=== PATIENT | female | born 1980 | race Hispanic/Latino ===

== ENCOUNTER → 2024-11-14 12:02 | Outpatient (REF) | payer OTHER, SELFPAY ==
[2024-11-14 13:09] LABS: % Basophils 0.6 % (0-2); % Eosinophils 4.3 % (0-6); % Immature Granulocytes 0.2 % (0-0.5); % Lymphocytes 40.3 % (20.5-51.1); % Monocytes 6.3 % (1.7-9.3); % Neutrophils 48.3 % (42.2-75.2); Absolute Eosinophils 0.3 10^3/uL (0-0.7); Absolute Lymphocytes 2.5 10^3/uL (1.2-3.4); Absolute Monocytes 0.4 10^3/uL (0.1-0.6); Hematocrit 40.5 % (37.0-47.0); Hemoglobin 13.5 g/dL (12.0-16.0); Mean Corp Hgb Conc. 33.3 g/dL (33.0-37.0); Mean Corpuscular Volume 92.9 fL (81.0-99.0); Nucleated Red Blood Cells % 0 %; Platelet Count 306 10^3/uL (130-400); Red Blood Cell Count 4.36 10^6/uL (4.20-5.40); Red Cell Dist. Width 13.1 % (11.5-14.5); White Blood Cell Count 6.2 10^3/uL (4.8-10.8)
[2024-11-14 13:10] LABS: Urine Albumin Negative (Neg - Trace); Urine Bilirubin Negative (Negative); Urine Character Clear (Clear); Urine Color Yellow; Urine Glucose Negative (Negative); Urine Ketone Negative (Negative); Urine Leukocyte Negative (Negative); Urine Nitrite Negative (Negative); Urine Occult Blood Negative (Negative); Urine Urobilinogen Negative (Neg - 1+)
[2024-11-14 13:37] LABS: ALT (SGPT) 53 U/L (0-35); AST (SGOT) 44 U/L (14-36); Albumin 4.7 g/dl (3.5-5.0); Alkaline Phosphatase 80 U/L (38-126); Blood Urea Nitrogen 5 mg/dl (7-17); Calcium 9.3 mg/dl (8.4-10.2); Carbon Dioxide 21 mmol/L (22-30); Chloride 105 mmol/L (98-107); Glucose 97 mg/dl (70-99); HDL Cholesterol 43 mg/dl; LDL Cholesterol, Calculated 133 mg/dl; Sodium 137 mmol/L (135-145); Total Bilirubin 0.7 mg/dl (0.2-1.3); Total Cholesterol 201 mg/dl (50-199); Total Protein 8.3 g/dl (6.3-8.2); Triglyceride 129 mg/dl (10-149); Very Low Density Lipoprotein 25 mg/dl (0-30); eGFR > 60.00
== END ==
LOC: RAD 12:02
PROVIDERS: ATTENDING PHYSICIAN Family Medicine
DX: R03.0 Elevated blood-pressure reading, without diagnosis of hypertension (principal); M25.562 Pain in left knee; M25.561 Pain in right knee; Z13.220 Encounter for screening for lipoid disorders; Z12.11 Encounter for screening for malignant neoplasm of colon
CPT/HCPCS: 36415; 73564; 80053; 80061; 81003; 83036; 84443; 85025

== ENCOUNTER → 2024-12-06 08:31 | Outpatient (REF) | payer OTHER, SELFPAY ==
[2024-12-08 16:18] LABS: FIT-Fecal Occult Blood Interp Negative
== END ==
LOC: REG 08:31
PROVIDERS: ATTENDING PHYSICIAN Family Medicine
DX: Z13.220 Encounter for screening for lipoid disorders (principal); Z12.11 Encounter for screening for malignant neoplasm of colon; R03.0 Elevated blood-pressure reading, without diagnosis of hypertension
CPT/HCPCS: 83520

== ENCOUNTER → 2024-12-17 17:43 | Outpatient (REF) | payer OTHER, SELFPAY | LOC: WDC 17:43 | PROVIDERS: ATTENDING PHYSICIAN Family Medicine | DX: Z12.31 Encounter for screening mammogram for malignant neoplasm of breast (principal) | CPT/HCPCS: 77063; 77067 ==

== ENCOUNTER → 2024-12-31 06:24 | Outpatient (REF) | payer OTHER, SELFPAY | LOC: WDC 06:24 | PROVIDERS: ATTENDING PHYSICIAN Family Medicine | DX: R74.8 Abnormal levels of other serum enzymes (principal); R92.8 Other abnormal and inconclusive findings on diagnostic imaging of breast | CPT/HCPCS: 76700 ==

== ENCOUNTER 2024-12-31 10:07 | Emergency (ER) | payer SELFPAY ==
[2024-12-31 10:11] VITALS: BP 153/86
--- NOTE | 2024-12-31 10:59 | ED.GENMED ---
History of Present Illness
General
Chief Complaint: Skin Problem
Source: patient
Exam Limitations: none
Time Seen by Provider: 12/31/24 10:46
Nursing documentation reviewed up to this point in time: agreed with
History of Present Illness
History of Present Illness:
44-year-old female with no chronic medical issues presents to the ER for evaluation of redness and pain around the site of a recent skin tag removal. Patient had skin tags on the left neck/shoulder that were removed in the ancillary main clinic on
reviewed the note from the clinic and she was anesthetized with lidocaine/epinephrine and approximately 20 small skin tags were removed. Silver nitrate cautery used for hemostasis. She was discharged with skin care instructions. She says
that a few days later she started to have some pain, warmth and redness of the site. Followed up in the clinic and was referred to the ER to be assessed for possible infection. She has not had any drainage. She has not had any fever. She denies
any other complaints.
Review of Systems
Review of Systems
All Other Systems: ROS reviewed and negative except as documented in HPI and ROS
Constitutional: Denies fever
Skin: Reports other (Redness near skin tag removal site)
Phy Exam
Physical Exam
Physical Exam:
General: Awake, alert, nontoxic
Head: Normocephalic, atraumatic
Eyes: Conjunctiva normal
Throat: Airway intact, handling secretions
Neck: Trachea midline
Lungs: Breathing comfortably no distress
Heart: Regular rate
Neuro: No gross deficits
Skin: Patient has multiple small superficial wounds on the left lateral neck from site of skin tag removal; there is some darkening of the skin around some of the sites likely from silver nitrate; there is some general erythema and warmth of the
area, no fluctuance noted, no drainage from any of the sites (pictured below)
Extremities: Warm and well-perfused
Scores
Heart Failure Risk
Heart Failure Risk Score: Not Applicable
Heart Score for Chest Pain Patients
STEMI patient?: Not applicable
Withdrawal Assessment of Alcohol
Withdrawal Assessment Completed?: Not applicable
Course
Orders/Labs/Results
Orders:
Orders
12/31/24 10:50
Bedside Glucose- Treatment ONCE
12/31/24 10:59
Cephalexin Monohydrate [Keflex] 500 mg PO NOW STA
Vital Signs
Initial and Last Documented VS:
Initial Vital Signs
Temp Pulse Resp BP Pulse Ox
37.1 C 64 18 153/86 98
12/31/24 10:11 12/31/24 10:11 12/31/24 10:11 12/31/24 10:11 12/31/24 10:11
Last Documented Vital Signs
Temp Pulse Resp BP Pulse Ox
37.1 C 64 18 153/86 98
12/31/24 10:11 12/31/24 10:11 12/31/24 10:11 12/31/24 10:11 12/31/24 10:11
Procedures
Other
Indication for procedure:: redness and pain
Procedure completed by: Aleks Suarez MD
Additional Procedure:
[id number] ultrasound of the skin performed�some slight cobblestoning and areas of skin erythema but no abscess or phlegmon noted
MDM/Problems Addressed
Differential Diagnosis Includes:
Cellulitis, abscess
MDM/Problems Addressed:
44-year-old female presents with redness and pain of skin after skin tag removal 5 days ago. Vitals and exam as above. [id number] ultrasound performed by il shows no drainable abscess. Presentation consistent with acute cellulitis. Will plan
to treat with antibiotics. Stable for discharge�we spoke about skin care instructions, return precautions, follow-up plan in detail. All questions answered.
*Pulse Oximetry
Patient hypoxic: no
*Critical Care Note
Total Time (30-74mins, 75-104mins- exclusive of procedures): Not Applicable
Data Reviewed
Review of Other/Old Records Reveals: Records (Reviewed note from clinic last week)
Source: patient
ED Attending Note
-
Portions of this chart may have been created with voice recognition software.� Occasional wrong word or��sound alike� substitutions may have occurred due to the inherent limitations of voice recognition software.
Discharge Plan
Departure
Patient Disposition: Home (Routine Discharge)
Date of Disposition: 12/31/24
Time of Disposition: 11:06
Patient with high blood pressure during this ER visit?: Yes
Discharge Problem:
Cellulitis
Instructions: Cellulitis (Skin Infection), Adult (DC)
Prescriptions:
New
cephalexin 500 mg capsule
500 mg PO QID 7 Days Qty: 28 0RF
Activity Restrictions/Additional Instructions:
Thank you for visiting the Emergency Department at [facility].
1. Please schedule a follow up appointment as directed. Call first thing tomorrow morning to make an appointment.
2. If indicated, please take your medications as instructed and indicated on discharge paperwork.
3. If any of your symptoms do not improve, or persist, or become more severe within 6-12 hours, please return to the emergency department for further care.
4. Please return to the emergency department if you develop a headache, neck pain/stiffness, fever greater than 100.4F, chest pain, shortness of breath, persistent nausea, vomiting, slurred speech, difficulty walking, numbness/tingling, weakness,
signs of infection or any other symptoms that are worrisome to you.
Please call [phone] if you have any questions.
Interventions
Interventions:
*Risk Screen - Suicide Last Done: 12/31/24 10:11
*General Assessment Last Done: 12/31/24 10:11
*Neglect/Abuse Screening Last Done: 12/31/24 10:11
*ED COVID-19 Vaccine History Last Done: 12/31/24 10:11
ED-Skin Assessment Last Done: 12/31/24 10:43
Discharge Date and Time
Print Language: AMHARIC
[2024-12-31 11:00] LABS: Glucose - Point of Care 106 mg/dl (70-99)
[2024-12-31] MEDS: KEFLEX 500 MG PO (11:11)
== END 2024-12-31 11:15 | disposition home or self-care (01) ==
LOC: EMR 10:07
PROVIDERS: EMERGENCY PHYSICIAN Emergency Medicine; FAMILY PHYSICIAN Internal Medicine Cardiovascular Disease
DX: T81.40XA Infection following a procedure, unspecified, initial encounter (principal); L03.221 Cellulitis of neck; Y84.8 Other medical procedures as the cause of abnormal reaction of the patient, or of later complication, without mention of misadventure at the time of the procedure
CPT/HCPCS: 99283; 82962